=== PATIENT | female | born 2000 | race African-American/Black ===

== ENCOUNTER 2020-01-16 14:31 | Emergency (ER) | payer SELFPAY ==
[~2020-01-16] VITALS: Ht 149.9 cm; Wt 58.6 kg
[2020-01-16 15:22] LABS: BASO % 1 % (0-3); EOS # 0.1 x10^3/uL (0.0-0.7); EOS % 1 % (0-3); HEMATOCRIT 33.2 % (36.0-47.0); HEMOGLOBIN 10.4 g/dL (12.0-15.5); LYMPH % 30 % (24-48); MEAN CORPUSCULAR HEMOGLOBIN 25 pg (25-35); MEAN CORPUSCULAR HGB CONC 31 g/dL (31-37); MEAN CORPUSCULAR VOLUME 79 fL (79-100); MONO # 0.2 x10^3/uL (0.0-1.1); MONO % 3 % (0-9); NEUT # 4.3 x10^3uL (1.8-7.7); NEUT % 65 % (31-73); PLATELET COUNT 211 x10^3/uL (140-400); RED CELL DISTRIBUTION WIDTH 19.2 % (11.5-14.5); WHITE BLOOD COUNT 6.6 x10^3/uL (4.0-11.0)
--- NOTE | 2020-01-16 15:33 | PHYS DOC ---
Past History Past Medical History: No Pertinent History Past Surgical History: No Surgical History Alcohol Use: None Adult General Chief Complaint Chief Complaint: VAGINAL BLEEDING HPI HPI Patient is a 19-year-old female who presents with heavy vaginal bleeding for past day. Patient states she is saturating super tampons and switch to pads with bleeding through pads. But denies dizziness lightheadedness, abdominal pain or cramping. Last menstrual period was 2 weeks ago and was reported as normal and on time. History of irregular menstrual periods. No other acute symptoms or complaints. Review of Systems Review of Systems Review of symptoms as per HPI. All other review of symptoms are negative. All other systems were reviewed and found to be within normal limits, except as documented in this note. Allergies Allergies Allergies Coded Allergies Type Severity Reaction Last Updated Verified No Known Drug Allergies 01/16/20 No Physical Exam Physical Exam Constitutional: Well developed, well nourished, no acute distress, non-toxic appearance. [] HENT: Normocephalic, atraumatic, bilateral external ears normal, oropharynx moist, nose normal. [] Eyes: PERRLA, EOMI, conjunctiva normal, no discharge. [] Neck: Normal range of motion. [] Cardiovascular:Heart rate regular rhythm, no murmur [] Lungs & Thorax: Bilateral breath sounds clear to auscultation [] Abdomen: Bowel sounds normal, soft, no tenderness, no masses, no pulsatile masses. [] Skin: Warm, dry, no erythema, no rash. [] Back: No tenderness. [] Extremities: No tenderness, no edema. [] Neurologic: Alert and oriented X 3, normal motor function, normal sensory function, no focal deficits noted. [] Psychologic: Affect normal, judgement normal, mood normal. [] Current Patient Data Vital Signs Vital Signs Date Time Temp Pulse Resp B/P (MAP) Pulse Ox O2 Delivery O2 Flow Rate FiO2 01/16/20 14:36 98.2 76 16 130/75 (93) 96 Room Air EKG EKG [] Radiology/Procedures Radiology/Procedures [Pelvic ultrasound:] Course & Med Decision Making Course & Med Decision Making Pertinent Labs and Imaging studies reviewed. (See chart for details) [Heavy vaginal bleeding. Vital signs, hemoglobin stable. Suspect abnormal uterine bleeding versus hemorrhagic cyst. Ultrasound pending. Anticipate discharge home with [facility] follow-up. Return precautions reviewed. Patient verbalizes understanding agree with discharge instructions prior to departure] Michael Disclaimer Dragon Disclaimer This electronic medical record was generated, in whole or in part, using a voice recognition dictation system. Departure Departure: Impression: Primary Impression: Dysfunctional uterine bleeding Disposition: HOME, SELF-CARE Condition: STABLE Referrals: [facility] (PCP) Patient Instructions: Uterine Bleeding, Dysfunctional, [id number] Additional Instructions: Please follow-up with your [facility] in 1 week for reevaluation. Take newly prescribed medications as directed Scripts Medroxyprogesterone Acetate (PROVERA) 10 Mg Tablet 1 TAB PO DAILY, #10 TAB Prov: JONAH POP DO 01/16/20 JONAH POP DO Jan 16, 2020 15:33
[2020-01-16] MEDS ORDERED: MEDR10TA PO (17:55)
[2020-01-16 18:26] VITALS: BP 116/53
--- NOTE | 2020-01-16 18:27 | RAD ---
US PELVIS W/TV History: Heavy vaginal bleeding, pelvic pain Comparison: None. Findings: Multiple transabdominal sonographic images of pelvis are submitted. Pelvic structures are not well visualized. Transvaginal ultrasound: Multiple transvaginal sonographic images of pelvis are submitted. Uterus measured 8.6 x 3.8 x 4.7 cm, somewhat heterogeneous echogenicity. Endometrium measured 0.9 cm in thickness, somewhat heterogeneous echogenicity. There is minimal free fluid. There is nabothian cyst. There is heterogeneity of the visualized cervix. Right ovary measured 2.5 x 1.8 x 3.9 cm left ovary measured 2.5 x 1.7 x 3 cm. There is normal color flow and low resistance vascularity of the bilateral ovaries. There are several follicles of the bilateral ovaries. Impression: 1. There is nonspecific heterogeneity of the uterus and endometrium, no discrete uterine mass demonstrated. Endometrial thickness can be considered within normal limits in a patient this age. There is small quantity of nonspecific free fluid in the pelvis. 2. There is nonspecific, heterogeneous appearance of the cervix for which clinical exam advised. Electronically signed by: Jona Leung MD (01/16/2020 6:25 PM) [id number]
== END 2020-01-16 18:32 | disposition home or self-care (01) ==
LOC: ER 14:31
DX: N93.8 Other specified abnormal uterine and vaginal bleeding (principal)
CPT/HCPCS: 36415; 76830; 76856; 84702; 85025; 99284